=== PATIENT | male | born 1990 | race Caucasian/White ===

== ENCOUNTER 2017-08-19 11:59 | Emergency (ER) | payer BC ==
--- NOTE | 2017-08-19 14:41 | UC ---
Back Pain HPI - HPI Summary HPI Summary: Low back pain for 4 months-no specific injury---in the past few days pain has returned pain radiates to left leg some numbness in calf - History of Current Complaint Chief Complaint: UCBackPain Stated Complaint: LOWER BACK PAIN Time Seen by Provider: 08/19/17 13:30 Hx Obtained From: Patient Onset/Duration: Gradual Onset, Lasting Weeks, Worse Since - past few days Timing: Constant Severity Initially: Mild Severity Currently: Moderate Pain Intensity: 7 Pain Scale Used: 0-10 Numeric Back Pain: Is Discrete @ - low back radiating to leg Character: Dull, Aching Aggravating Factor(s): Movement Associated Signs And Symptoms: Positive: Other - some change in sensation in left calf from medial to lateral side - Allergies/Home Medications Allergies/Adverse Reactions: Allergies Allergy/AdvReac Type Severity Reaction Status Date / Time No Known Allergies Allergy Verified 08/19/17 12:47 Home Medications: Home Medications Ibuprofen TAB* [Motrin TAB* 600 MG] 600 mg PO ONCE 08/19/17 [History Confirmed 08/19/17] PMH/Surg Hx/FS Hx/Imm Hx Previously Healthy: Yes - Surgical History Surgical History: None - Family History Known Family History: Positive: None - Social History Occupation: Employed Full-time Lives: With Family Alcohol Use: Occasionally Substance Use Type: None Smoking Status (MU): Never Smoked Tobacco Review of Systems Constitutional: Negative Skin: Negative Eyes: Negative ENT: Negative Respiratory: Negative Cardiovascular: Negative Gastrointestinal: Negative Genitourinary: Negative Motor: Negative Neurovascular: Negative Musculoskeletal: Arthralgia - lumbar back pain Neurological: Negative Psychological: Negative Is Patient Immunocompromised?: No All Other Systems Reviewed And Are Negative: Yes Physical Exam Triage Information Reviewed: Yes Appearance: Well-Appearing, No Pain Distress, Well-Nourished Vital Signs: Initial Vital Signs Temp 98.0 F 08/19/17 12:44 Pulse 64 08/19/17 12:44 Resp 18 08/19/17 12:44 BP 142/85 08/19/17 12:44 Pulse Ox 100 08/19/17 12:44 Vital Signs Reviewed: Yes Eye Exam: Normal Eyes: Positive: Conjunctiva Clear ENT Exam: Normal ENT: Positive: Normal ENT inspection, Hearing grossly normal. Negative: Nasal congestion, Nasal drainage, Trismus, Muffled/hoarse voice Dental Exam: Normal Neck exam: Normal Neck: Positive: Supple, Nontender Respiratory Exam: Normal Respiratory: Positive: Chest non-tender, Lungs clear, No respiratory distress, No accessory muscle use Cardiovascular Exam: Normal Cardiovascular: Positive: RRR, Brisk Capillary Refill Musculoskeletal Exam: Normal Musculoskeletal: Positive: Strength Intact, No Edema, ROM Limited @ Neurological Exam: Normal Neurological: Positive: Alert, Muscle Tone Normal Psychological Exam: Normal Skin Exam: Normal Diagnostics - Radiology No standard instances Xray Interpretation: Positive (See Comments) - mild arthritic and degenerative changes Radiology Interpretation Completed By: Radiologist Back Pain Course/Dx - Course Course Of Treatment: gentle exercise, merol dose pack follow with pcp for further work up to ED for acute changes - Differential Dx/Diagnosis Provider Diagnoses: Arthritis Lumbar spine, low back pain Discharge - Discharge Plan Condition: Stable Disposition: HOME Prescriptions: Methylprednisolone [Medrol Dosepak 4 MG*] 1 jimmy PO .SEE JIMMY INSTRUCTION #1 packet Patient Education Materials: Core Strengthening Exercises (GEN), Lower Back Exercises (ED), Arthritis (ED) Forms: *Work Release Referrals: [facility] [place] [facility]FERR[facility] [Outside] - 1 Week Moses CHU,Carlos Flores [Primary Care Provider] -
--- NOTE | 2017-08-19 15:04 | RAD ---
HISTORY: Back pain after injury COMPARISONS: None VIEWS: 5 , Frontal, lateral, coned-down lateral sacral, and bilateral oblique views of the lumbar spine. FINDINGS: ALIGNMENT: There is straightening of the normal lumbar lordosis. VERTEBRAL BODIES: There is multilevel anterolateral marginal osteophyte formation. JOINTS: There is mild facet osteoarthritic change INTERVERTEBRAL DISCS: There is mild diffuse loss of intervertebral disc height. SOFT TISSUE: Unremarkable. OTHER: The pelvis is unremarkable. The lung bases are clear. IMPRESSION: MILD DEGENERATIVE DISC DISEASE AND OSTEOARTHRITIS.
[2017-08-19] MEDS ORDERED: Ibuprofen TAB* 600 MG PO ONE (15:30)
[2017-08-19 15:53] VITALS: BP 156/92
== END 2017-08-19 15:45 | disposition home or self-care (01) ==
LOC: UCEAST 11:59
DX: M46.96 Unspecified inflammatory spondylopathy, lumbar region (principal); M54.5 Low back pain
CPT/HCPCS: 72110; 99212; A9270-GY; G0463